=== PATIENT | female | born 1985 | race American Indian/Alaskan Native ===

== ENCOUNTER 2018-10-16 02:01 | Outpatient (CLI) | payer MEDICAID, OTHER ==
[2018-10-16] MEDS ORDERED: LACTATED RINGERS 1,000 ML IV ONE (04:00)
[2018-10-16] MEDS ORDERED: LACTATED RINGERS ONE (04:00)
== END 2018-10-16 04:48 | disposition home or self-care (01) ==
LOC: TRG 02:01
PROVIDERS: ATTEND Obstetrics & Gynecology
DX: O21.2 Late vomiting of pregnancy (principal); O62.9 Abnormality of forces of labor, unspecified; Z3A.32 32 weeks gestation of pregnancy
CPT/HCPCS: 59025; J7120; 96360

== ENCOUNTER 2018-11-18 12:17 | Inpatient (IN) | payer MEDICAID ==
[2018-11-18] MEDS ORDERED: LACTATED RINGERS 500 ML IV ONE (13:04)
[2018-11-18 13:54] LABS: Bilirubin,Urine NEG (Negative); Blood,Urine NEG (Negative); Color,Urine Yellow (Yellow); Mucus,Urine FEW /HPF; Protein,Urine <15 mg/dL mg/dL (Negative); Urobilinogen,Urine < 2.0 mg/dL (<2.0); WBC,Urine < 1.0 /HPF (0.0-6.0)
[2018-11-18] MEDS ORDERED: LACTATED RINGERS 1,000 ML ONE (16:43)
--- NOTE | 2018-11-18 17:05 | Ultrasound Report ---
ULTRASOUND BIOPHYSICAL PROFILE INDICATION / CLINICAL INFORMATION: Decreased movement. COMPARISON: None available. FINDINGS: BREATHING MOVEMENT = 0 GROSS BODY MOVEMENT = 2 TONE = 2 QUALITATIVE AMNIOTIC FLUID VOLUME = 2 TOTAL BIOPHYSICAL SCORE = 6/8 AMNIOTIC FLUID = Deepest vertical pocket 2.4 cm. HEART RATE (beats per minute): 114 IMPRESSION: biophysical profile = 07/25 Signer Name: Jeremiah Lakhani MD Signed: 11/18/2018 5:01 PM Workstation Name: [id number]
[2018-11-18] MEDS ORDERED: FAMOTIDINE 20 MG/2 ML INJ IV SCH (18:02)
[2018-11-18] MEDS ORDERED: METOCLOPRAMIDE 10 MG/2 ML INJ IV SCH (18:02)
[2018-11-18] MEDS ORDERED: LACTATED RINGERS 1,000 ML IV ONE (18:25)
[2018-11-18] MEDS ORDERED: ceFAZolin/Water 2 GM/20 ML 2 GM/20 ML SYRINGE IV NR (19:00)
[2018-11-18] MEDS ORDERED: LACTATED RINGERS 1,000 ML IV SCH (19:00)
[2018-11-18] MEDS ORDERED: OXYTOCIN 20 UNIT/1000ML DRIP 20 UNITS/1,000 ML BAG IV SCH (19:00)
[2018-11-18] MEDS ORDERED: BICITRA ORAL LIQD 30ML PO ONE (19:02)
[2018-11-18 19:18] LABS: Basophils % (Auto) 0.3 % (0.0-1.8); Eosinophils # (Auto) 0.1 K/mm3 (0.0-0.4); Eosinophils % (Auto) 1.2 % (0.0-4.3); Hematocrit 32.6 % (30.3-42.9); Hemoglobin 10.9 gm/dl (10.1-14.3); Lymphocytes # (Auto) 1.7 K/mm3 (1.2-5.4); Lymphocytes % (Auto) 28.5 % (13.4-35.0); Mean Corpuscular HGB Conc 34 % (30-34); Mean Corpuscular Volume 83 fl (79-97); Monocytes # (Auto) 0.6 K/mm3 (0.0-0.8); Monocytes % (Auto) 10.3 % (0.0-7.3); Platelet Count 213 K/mm3 (140-440); Red Blood Count 3.93 M/mm3 (3.65-5.03); Red Cell Distribution Width 13.3 % (13.2-15.2)
[2018-11-18] MEDS ORDERED: BICITRA ORAL LIQD 30ML ONE (21:09)
--- NOTE | 2018-11-18 21:16 | History and Physical Report ---
History of Present Illness Date of examination: 11/18/18 Chief complaint: Previous C Section x 3 History of present illness: Pt is a 33yo BF EDC 12/06/18; EGA 37 3/7 weeks presents to L&D complaining of decreased movement. BPP 6/8 and she had a prolonged deceleration earlier, now resolved, but having contractions again. She received care at [facility] and was scheduled for a Repeat C Section with BTL @ 39 weeks, but will proceed now with Repeat C Section and BTL due to contractions. records are not available and GBS is unknown. Past History Past Medical History: no pertinent history Past Surgical History: section (x3) Social history: no significant social history, single - Obstetrical History Expected Date of Delivery: 12/06/18 Actual Gestation: 37 Week(s) 3 Day(s) : 7 Medications and Allergies Allergies Allergy/AdvReac Type Severity Reaction Status Date / Time No Known Allergies Allergy Verified 10/16/18 04:27 Active Meds: Active Medications Famotidine (Pepcid) 20 mg IV ONCE EVA Stop: 11/19/18 18:01 Oxytocin/Sodium Chloride (Pitocin/Ns 20 Unit/1000ml Drip) 20 units in 1,000 mls @ 0 mls/hr IV TITR EVA Lactated Ringer's (Lactated Ringers) 1,000 mls @ 2,250 mls/hr IV PREOP EVA Stop: 11/19/18 19:27 Cefazolin Sodium (Ancef/Sterile Water 2 Gm/20 Ml) 2 gm in 20 mls @ 80 mls/hr IV PREOP NR; Protocol Stop: 11/19/18 18:59 Metoclopramide HCl (Reglan) 10 mg IV ONCE EVA Stop: 11/19/18 18:01 Review of Systems All systems: negative - Vital Signs Vital signs: Vital Signs Pulse BP Pulse Ox 83 125/73 96 11/18/18 12:51 11/18/18 12:51 11/18/18 12:51 Temp Pulse Resp BP Pulse Ox 98.4 F 82 16 122/84 100 11/18/18 13:03 11/18/18 21:08 11/18/18 13:03 11/18/18 17:58 11/18/18 21:08 - Physical Exam Breasts: Positive: deferred Cardiovascular: Regular rate Lungs: Positive: Clear to auscultation Abdomen: Positive: normal appearance Genitourinary (Female): Positive: normal external genitalia Uterus: Positive: enlarged Extremities: Positive: normal - Obstetrical FHR: category 2 Uterine Contraction Monitor Mode: External Uterine Contraction Pattern: Irregular Uterine Tone Measurement Phase: Contraction Uterine Contraction Intensity: Strong/Firm Results Result Diagrams: 11/18/18 18:34 Abnormal lab results 11/18/18 Range/Units 18:34 [place] % (Auto) 10.3 H (0.0-7.3) % All other labs normal. Ultrasound: report reviewed ([facility] 07/25) Assessment and Plan - Patient Problems (1) 37 weeks gestation of Onset Date: 11/18/18 Current Visit: Yes Status: Acute Plan to address problem: A: IUP @ 37 3/7 weeks in labor NR surveillance Previous C Section x 3 Desires permanent sterilization P: Admit for a Repeat C Section with BTL Obtain records in AM (2) Previous section complicating Onset Date: 11/18/18 Current Visit: Yes Status: Acute
[2018-11-18] MEDS ORDERED: KETOROLAC 30 MG/1 ML INJ ONE (22:02)
[2018-11-18] MEDS ORDERED: ePHEDrine SULFATE 50 MG/1 ML INJ ONE (22:02)
[2018-11-18] MEDS ORDERED: ONDANSETRON 4 MG/2 ML INJ ONE (22:02)
[2018-11-18] MEDS ORDERED: WATER FOR IRRIG STERILE 1,500 ML BOTTLE IR ONE (22:15)
[2018-11-18] MEDS ORDERED: SODIUM CHLORIDE 0.9% IRR 1,500 ML BOTTLE IR ONE (22:15)
[2018-11-18] MEDS ORDERED: PHENYLEPHRINE/NS 1,000 MCG/10 ML SYRINGE (OR USE) IV ONE (22:40)
--- NOTE | 2018-11-18 22:50 | Operative Report ---
Operative Report Operative Report: Date of procedure: 11/18/2018 Pre-operative diagnosis: 1. Intrauterine at 37 3/7 weeks 2. Prev ious C Section x3 3. Non-reassuring surveillance 4. Desires permanent sterilization Post-operative diagnosis: Same with lower uterine segment adhesions Procedure name(s): 1. Repeat low transverse section 2. Bilateral Tubal Ligation Surgeon: Glynn Del Angel MD Supply Analyst: None Anesthesia: Spinal anesthesia by Kendy Melo CRNA EBL: 500 mL's Findings: A 2443g male Apgars 8 at 1 minute and 9 at 5 minutes. Clear amniotic fluid. Normal uterus with lower uterine segment adhesions. Normal tubes and ovaries bilaterally. Procedure: After the patient was prepped and draped in usual sterile fashion, and after satisfactory level of epidural anesthesia was obtained, the skin knife was used to make a transverse skin incision through the previous skin scars. The incision was excised down to layer of the fascia, which was nicked in the midline and extended laterally using the Bovie cautery. The rectus muscles were dissected off the rectus fascia both superiorly and inferiorly. The rectus bellies in the midline, and the peritoneum was entered under direct visualization. The peritoneal incision was extended superiorly and inferiorly. The lower uterine adhesions were taken down using both sharp and blunt dissection. A bladder flap was created and the bladder blade was then placed. The uterus was scored in a curvilinear linear fashion, entered in the midline revealing clear amniotic fluid. The infant's head was delivered onto the surgical field with the aid of a vacuum, and the oropharynx and nasopharynx were bulb suctioned. The rest of the 's body was delivered, cord was doubly clamped and cut and the was handed to the waiting respiratory team. Cord blood was then obtained. The placenta was manually removed from the uterus, and the uterus removed from its normal anatomical position. After gentle uterine lavage, the incision was inspected and found to be without extensions. It was then closed in 2 layers using 0 Vicryl suture in a running interlocking fashion, the second layer imbricating the first. After good hemostasis was achieved, copious amounts or irrigation was performed, and the gutters were suctioned free of blood and blood clots. Attention was then turned to the tubal ligation. First the left fallopian tube was grasped using a [place], and the Filsche clip was applied to the proximal portion of the left tube. Next the right fallopian tube was grasped using the [place], and the Filsche clip was applied to the proximal portion of the tube. The Tisseel sealant was sprayed across the uterine incision, and excellent hemostasis was assured. The uterus was then returned to its normal anatomical position, and after excellent hemostasis assured, the peritoneum was re-approximated using 3-0 Vicryl suture in a running interlocking fashion, and then the rectus muscles were re-approximated using 3-0 Vicryl suture in a [id number] configuration. The fascia was then re-approximated using 0 Vicryl suture in running interlocking fashion. The subcutaneous layer was made hemostatic using Bovie cautery, and the skin edges re-approximated using 4-0 Vicryl suture in a sub-cuticular fashion. Patient tolerated the procedure well was transported to recovery in stable condition.
[2018-11-18] MEDS ORDERED: MAGNESIUM HYDROXIDE (MOM) ORAL LIQD UDC PO PRN (22:51)
[2018-11-18] MEDS ORDERED: NALOXONE 0.4 MG/1 ML INJ IV PRN (22:51)
[2018-11-18] MEDS ORDERED: ACETAMINOPHEN 325 MG TAB PO PRN (22:51)
[2018-11-18] MEDS ORDERED: HYDROcodone/ACETAMINOPHEN 5-325 MG TAB PO PRN (22:51)
[2018-11-18] MEDS ORDERED: PROMETHAZINE 25 MG RECT SUPP PR PRN (22:51)
[2018-11-18] MEDS ORDERED: LANOLIN/ZINC/DIMETHICONE (LANSINOH) 7 GM TP PRN (22:51)
[2018-11-18] MEDS ORDERED: WITCH HAZEL/ GLYCERIN PAD TP PRN (22:51)
[2018-11-18] MEDS ORDERED: SIMETHICONE 80 MG CHEW TAB PO PRN (22:51)
[2018-11-18] MEDS ORDERED: SENNOSIDES 8.6 MG TAB PO PRN (22:51)
[2018-11-18] MEDS ORDERED: ONDANSETRON 4 MG/2 ML INJ IV PRN ×2 (22:51→23:10)
[2018-11-18] MEDS ORDERED: D5W/LACTATED RINGERS 1,000 ML IV SCH (23:00)
[2018-11-18] MEDS ORDERED: HYDROmorphone 1 MG/1 ML INJ IV PRN (23:10)
--- NOTE | 2018-11-18 23:13 | Anesthesia Consultation ---
Anesthesia Consult and Med Hx Date of service: 11/18/18 - Airway Anesthetic Teeth Evaluation: Poor, Chipped ROM Head & Neck: Adequate Mental/Hyoid Distance: Adequate Mallampati Class: Class II Intubation Access Assessment: Probably Good - Pulmonary Exam CTA: Yes - Cardiac Exam Cardiac Exam: RRR - Pre-Operative Health Status ASA Pre-Surgery Classification: ASA2 Proposed Anesthetic Plan: Spinal - Pulmonary Hx Smoking: No (stoped) Hx Asthma: No Hx Respiratory Symptoms: No SOB: No COPD: No Home Oxygen Therapy: No Hx Pneumonia: No Hx Sleep Apnea: No - Cardiovascular System Hx Hypertension: No Hx Coronary Artery Disease: No Hx Heart Attack/AMI: No Hx Angina: No Hx Percutaneous Transluminal Coronary Angioplasty (PTCA): No Hx Cardia Arrhythmia: No Hx Pacemaker: No Hx Internal Defibrillator: No Hx Valvular Heart Disease: No Hx Heart Murmur: No Hx Peripheral Vascular Disease: No - Central Nervous System Hx Neuromuscular Disorder: No Hx Seizures: No CVA: No Hx Back Pain: Yes Hx Psychiatric Problems: No - Gastrointestinal Hx Ulcer: No Hx Gastroesophageal Reflux Disease: Yes - Endocrine Hx Renal Disease: No Hx End Stage Renal Disease: No Hx Cirrhosis: No Hx Liver Disease: No Hx Insulin Dependent Diabetes: No Hx Non-Insulin Dependent Diabetes: No Hx Thyroid Disease: No Hx Hypothyroidism: No Hx Hyperthyroidism: No - Hematic Hx Anemia: Yes Hx Sickle Cell Disease: No - Other Systems Hx Alcohol Use: No Hx Substance Use: No Hx Cancer: No Hx Obesity: Yes (BMI 40.3)
--- NOTE | 2018-11-18 23:14 | Anesthesia Day of Surgery ---
Anesthesia Day of Surgery - Day of Surgery Patient Examined: Yes Patient H&P Reviewed: Yes Patient is NPO: Yes Beta Blockers: No Cardiac Clearance: No Pulmonary Clearance: No Fitz's Test: N/A
--- NOTE | 2018-11-18 23:15 | Post Anesthesia Evaluation ---
- Post Anesthesia Evaluation Patient Participated: Yes Airway Patent: Yes Stable Respiratory Function: Yes Nausea/Vomiting: No Temp > 96.8F: Yes Pain Manageable: Yes Adequeate Hydration: Yes Anesthesia Complications: No Block Receding Appropriately: Yes Patient on Ventilator: No
[2018-11-18] MEDS ORDERED: DEXMEDETOMIDINE 200 MCG/2 ML VIAL IV ONE (23:30)
[2018-11-18] MEDS: OXYTOCIN 20 UNIT/1000ML DRIP 20 UNITS/1,000 ML BAG IV SCH (23:37)
[2018-11-19] MEDS: OXYTOCIN 20 UNIT/1000ML DRIP 20 UNITS/1,000 ML BAG IV SCH (00:04)
[2018-11-19] MEDS: KETOROLAC 30 MG/1 ML INJ IV PRN ×2 (01:10→08:53)
[2018-11-19] MEDS: HYDROmorphone 1 MG/1 ML INJ IV PRN ×2 (02:17→06:01)
[2018-11-19] MEDS: ceFAZolin/NS 1 GM/50 ML 1 GM/50 ML BAG IV SCH ×2 (05:09→12:00)
--- NOTE | 2018-11-19 10:49 | Progress Note ---
Assessment and Plan A: POD#1 s/p Repeat c/s with BTL Pain well controlled stable P: Routine PP/PO orders Abdominal binder Anticipate discharge home 24-48 hrs Subjective - Subjective Date of service: 11/19/18 Principal diagnosis: POD#1 s/p R c/s with BTL Interval history: See H&P and Operative note Patient reports: appetite normal, voiding normally, pain well controlled, flatus, ambulating normally, no bowel movement [place]: doing well, nursing well Objective - Vital Signs Latest vital signs: Vital Signs Temp Pulse Resp BP BP Pulse Ox 11/19/18 07:40 97.3 F L 76 24 118/65 97 11/19/18 06:01 20 11/19/18 04:30 97.8 F 82 20 113/68 11/19/18 02:17 20 11/19/18 01:10 20 11/19/18 00:47 97.5 F L 69 20 118/66 100 11/19/18 00:00 97.5 F L 70 14 105/43 100 11/18/18 23:45 71 18 104/47 100 11/18/18 23:30 76 13 87/42 100 11/18/18 23:15 76 16 101/44 100 11/18/18 23:10 79 16 96/45 100 11/18/18 23:05 97.7 F 72 11 L 92/39 100 11/18/18 21:23 94 H 100 11/18/18 21:18 84 99 11/18/18 21:13 78 99 11/18/18 21:08 82 100 11/18/18 21:03 86 99 11/18/18 20:58 78 98 11/18/18 20:53 78 99 11/18/18 20:48 83 99 11/18/18 20:43 78 99 11/18/18 20:38 73 99 11/18/18 20:33 78 99 11/18/18 20:28 77 99 11/18/18 20:23 72 99 11/18/18 20:18 76 99 11/18/18 20:13 82 98 11/18/18 20:08 86 99 11/18/18 20:03 86 99 11/18/18 19:58 81 99 11/18/18 19:47 84 98 11/18/18 19:42 77 98 11/18/18 19:37 78 98 11/18/18 19:32 77 98 11/18/18 19:27 76 98 11/18/18 19:22 91 H 98 11/18/18 19:17 79 98 11/18/18 19:12 84 99 11/18/18 19:07 84 99 11/18/18 19:02 79 98 11/18/18 18:57 81 99 11/18/18 18:52 78 100 11/18/18 18:47 85 100 11/18/18 18:42 81 100 11/18/18 18:37 87 99 11/18/18 18:32 81 99 11/18/18 18:27 78 100 11/18/18 18:22 80 100 11/18/18 18:17 79 100 11/18/18 18:12 84 100 11/18/18 18:07 84 100 11/18/18 18:02 86 100 11/18/18 17:58 80 122/84 11/18/18 17:57 86 100 11/18/18 14:21 77 99 11/18/18 14:16 83 100 11/18/18 14:11 83 99 11/18/18 14:06 76 98 11/18/18 14:01 79 99 11/18/18 13:56 83 99 11/18/18 13:51 75 98 11/18/18 13:46 83 98 11/18/18 13:41 81 100 11/18/18 13:36 84 98 11/18/18 13:31 91 H 97 11/18/18 13:26 81 98 11/18/18 13:21 83 96 11/18/18 13:16 85 98 11/18/18 13:11 84 98 11/18/18 13:06 83 97 11/18/18 13:03 98.4 F 85 16 125/73 11/18/18 13:01 89 97 11/18/18 12:56 83 97 11/18/18 12:51 82 125/73 96 Intake and Output 11/18/18 11/19/18 11/19/18 23:59 07:59 15:59 Intake Total 800 232.5 Output Total 400 100 300 Balance 400 132.5 -300 Intake: IV 800 112.5 PITOCin/NS 20 UNIT/1000ML 112.5 DRIP 20 units In 1,000 ml @ 250 mls/hr IV DIRECT [facility] Rx#:[id number] Intake, Free Water 120 Output: Urine 400 100 300 Indwelling Catheter 100 300 Uretheral ([place]) 200 Other: Total, Output Amount 100 300 Estimated Blood Loss 500 - Exam Breasts: Present: normal, Cardiovascular: Present: Regular rate, Normal S1, Normal S2, No murmurs Lungs: Present: Clear to auscultation, Normal air movement Abdomen: Present: normal appearance, soft, normal bowel sounds Vulva: both: normal Uterus: Present: firm, fundal height at umbilicus Extremities: Present: normal Deep Tendon Reflex Grade: Normal +2 Incision: Present: normal, dry, intact, dressed (Pressure dressing CDI) - Labs Labs: Abnormal lab results 11/18/18 Range/Units 18:34 [place] % (Auto) 10.3 H (0.0-7.3) %
[2018-11-19 11:12] LABS: Hematocrit 31.6 % (30.3-42.9); Hemoglobin 10.7 gm/dl (10.1-14.3)
[2018-11-19] MEDS: PRENATAL VIT27-FE FUMARATE-FOLIC ACID VIT TAB PO SCH (12:04)
[2018-11-19] MEDS: FERROUS SULFATE 325 MG TAB PO SCH (12:04)
[2018-11-19] MEDS: oxyCODONE /ACETAMINOPHEN 5-325MG TAB PO PRN ×2 (12:04→18:52)
[2018-11-19] MEDS: IBUPROFEN 800 MG TAB PO PRN ×2 (16:15→21:55)
[2018-11-19] MEDS ORDERED: MEASLES, MUMPS & RUBELLA 12,500 UNIT/0.5 ML VACCINE SUB-Q ONE (22:53)
[2018-11-20] MEDS: oxyCODONE /ACETAMINOPHEN 5-325MG TAB PO PRN ×3 (02:31→20:16)
[2018-11-20] MEDS: IBUPROFEN 800 MG TAB PO PRN ×2 (05:14→14:55)
[2018-11-20] MEDS ORDERED: TETANUS,DIPH,PERTUSS(ACELL) VACCINE 0.5 ML SYRINGE IM ONE (06:00)
[2018-11-20] MEDS: FERROUS SULFATE 325 MG TAB PO SCH (10:03)
[2018-11-20] MEDS: PRENATAL VIT27-FE FUMARATE-FOLIC ACID VIT TAB PO SCH (10:03)
--- NOTE | 2018-11-20 10:48 | Progress Note ---
Assessment and Plan A: POD#2 s/p Repeat c/s with BTL Pain well controlled stable P: Routine PP/PO orders Abdominal binder Anticipate discharge home 11/21 Subjective - Subjective Date of service: 11/20/18 Principal diagnosis: POD#2 s/p R c/s with BTL Interval history: See H&P and Operative note Patient reports: appetite normal, voiding normally, pain well controlled, flatus, ambulating normally, no bowel movement [place]: doing well, nursing well Objective - Vital Signs Latest vital signs: Vital Signs Temp Pulse Resp BP BP Pulse Ox 11/20/18 10:07 20 11/20/18 08:22 97.9 F 68 16 130/62 97 11/20/18 05:14 20 11/20/18 02:31 20 11/20/18 00:00 98.8 F 80 16 119/78 11/19/18 21:55 20 11/19/18 20:00 98.4 F 78 18 111/69 11/19/18 16:37 98.2 F 74 20 109/63 99 11/19/18 11:42 98.0 F 79 20 114/65 97 Intake and Output 11/19/18 11/20/18 11/20/18 23:59 07:59 15:59 Intake Total 240 200 Output Total 300 Balance -60 200 Intake: Oral 240 200 Output: Urine 300 Void 300 Other: Total, Intake Amount 240 200 Total, Output Amount 300 # Voids Void 1 1 - Exam Breasts: Present: normal, Cardiovascular: Present: Regular rate, Normal S1, Normal S2, No murmurs Lungs: Present: Clear to auscultation, Normal air movement Abdomen: Present: normal appearance, soft, tenderness (as expected post-op), normal bowel sounds. Absent: distention Vulva: both: normal Uterus: Present: firm, fundal height below umbilicus (-1) Extremities: Present: normal Incision: Present: normal, dry, intact
--- NOTE | 2018-11-20 10:51 | Discharge Summary ---
Providers - Providers Date of Admission: 11/18/18 13:04 Date of discharge: 11/21/18 Attending physician: AILIN THOMPSON MD Primary care physician: AILIN THOMPSON MD Hospitalization Reason for admission: section, IUP at term Delivery: Procedure: repeat low transverse Procedure details: See operative note Incision: normal, dry, intact Other procedures: tubal ligation complications: none Discharge diagnosis: IUP at term delivered [place] baby: female Condition at discharge: Good Disposition: DC-01 TO HOME OR SELFCARE Plan - Discharge Medications Prescriptions: Ferrous Sulfate [Feosol 325 MG tab] 325 mg PO BID #60 tablet Ibuprofen [Motrin] 800 mg PO Q8HR PRN #30 tablet PRN Reason: Pain, Mild (1-3) oxyCODONE /ACETAMINOPHEN [Percocet 5/325] 1 tab PO Q6HR PRN #30 tablet PRN Reason: Pain Vit-Fe Fumar-FA [ Vitamin] 1 tab PO QDAY #30 tablet - Provider Discharge Summary Activity: routine, no sex for 6 weeks, no heavy lifting 4 weeks, no strenuous exercise Diet: routine Instructions: routine Additional instructions: [] Smoking cessation referral if applicable(refer to patient education folder for contact #) [] Refer to [facility] Booklet Call your doctor immediately for: * Fever > 100.5 * Heavy vaginal bleeding ( >1 pad per hour) * Severe persistent headache * Shortness of breath * Reddened, hot, painful area to leg or breast * Drainage or odor from incision. * Keep incision clean and dry at all times and follow doctor's instructions regarding bathing/showering - Follow up plan Follow up: AILIN THOMPSON MD [Primary Care Provider] - 7 Days
[2018-11-21] MEDS: IBUPROFEN 800 MG TAB PO PRN (02:06)
[2018-11-21] MEDS: PRENATAL VIT27-FE FUMARATE-FOLIC ACID VIT TAB PO SCH (08:55)
[2018-11-21] MEDS: oxyCODONE /ACETAMINOPHEN 5-325MG TAB PO PRN (08:55)
[2018-11-21] MEDS: FERROUS SULFATE 325 MG TAB PO SCH (08:55)
[2018-11-21 13:03] VITALS: BP 123/64
== END 2018-11-21 15:15 | disposition home or self-care (01) | DRG 766 ==
LOC: TRG 12:17 → APU 13:04 → TRG 13:04 → OB 11-19 00:31
PROVIDERS: ADMIT Obstetrics & Gynecology; ATTEND Obstetrics & Gynecology
PROC: 10D00Z1 Extraction of Products of Conception, Low, Open Approach (ICD-10-PCS; principal; 2018-11-18)
PROC: 0UL70CZ Occlusion of Bilateral Fallopian Tubes with Extraluminal Device, Open Approach (ICD-10-PCS; 2018-11-18)
PROC: 3E0234Z Introduction of Serum, Toxoid and Vaccine into Muscle, Percutaneous Approach (ICD-10-PCS; 2018-11-20)
DX: O34.211 Maternal care for low transverse scar from previous cesarean delivery (principal); Z3A.37 37 weeks gestation of pregnancy; Z37.0 Single live birth; K21.9 Gastro-esophageal reflux disease without esophagitis; O99.62 Diseases of the digestive system complicating childbirth; O99.214 Obesity complicating childbirth; K92.9 Disease of digestive system, unspecified; E66.9 Obesity, unspecified; N73.6 Female pelvic peritoneal adhesions (postinfective); Z23 Encounter for immunization
CPT/HCPCS: 36415; 76819; 81001; 85014; 85018; 85025; 86850; 86900; 86901; 90471; 90715; G0378; C9250; J0690; J1170; J1885; J2370; J2405; J2590; J2765; J3490; J7120; J7121